=== PATIENT | female | born 2000 | race Hispanic/Latino ===

== ENCOUNTER 2022-01-01 19:41 | Emergency (ER) | payer OTHER ==
[2022-01-01 22:07] LABS: Urine Blood Negative (Negative); Urine Glucose Trace (Negative); Urine Protein Negative (Negative); Urine Specific Gravity >=1.030 (1.005-1.030); Urine pH 5.5 (5.0-7.0)
[2022-01-01 22:37] LABS: Urine RBC <5 /HPF (NONE SEEN)
[2022-01-01 22:38] LABS: Urine Bacteria >50 /HPF (<20); Urine Mucus LIGHT /HPF (NONE SEEN)
--- NOTE | 2022-01-01 22:55 | EDPHYS ---
Physician Documentation [facility] Name: Rosemary Ha Age: 21 yrs Sex: Female : 2000 Arrival Date: 01/01/2022 Time: 19:44 Bed DIS3 Private MD: ED Physician Alcides Davison HPI: 01/01 21:16 This 21 yrs old Female presents to ER via Ambulatory with complaints of Fever. pm1 21:16 The patient reports fever, not measured (subjective). Onset: The symptoms/episode pm1 began/occurred yesterday. Modifying factors: there are no obvious modifying factors. Associated signs and symptoms: Pertinent positives: cough, runny nose, sore throat, dysuria, suprapubic cramping with urinating. Severity of symptoms: in the emergency department the symptoms are unchanged. The patient has not experienced similar symptoms in the past. The patient has not recently seen a physician. 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 - Social history:: Smoking status: Patient denies any tobacco usage or history of. ROS: 21:16 Constitutional: Negative for fever, chills, and weight loss, Cardiovascular: Negative pm1 for chest pain, palpitations, and edema, Respiratory: Negative for shortness of breath, cough, wheezing, and pleuritic chest pain, Abdomen/GI: Negative for abdominal pain, nausea, vomiting, diarrhea, and constipation. 21:16 Back: Negative for injury and pain. pm1 21:16 MS/Extremity: Negative for injury and deformity, Skin: Negative for injury, rash, and discoloration, Neuro: Negative for headache, weakness, numbness, tingling, and seizure. 21:16 : Positive for cramping suprapubic area with urination, Negative for flank pain. 21:16 All other systems are negative. Exam: 21:16 Constitutional: This is a well developed, well nourished patient who is awake, alert, pm1 and in no acute distress. Head/Face: Normocephalic, atraumatic. 21:16 Back: No spinal tenderness. No costovertebral tenderness. Full range of motion. Skin: Warm, dry with normal turgor. Normal color with no rashes, no lesions, and no evidence of cellulitis. MS/ Extremity: Pulses equal, no cyanosis. Neurovascular intact. Full, normal range of motion. 21:16 ENT: Exam is negative for acute changes, Mouth: no acute changes, Lips: normal, moist, Oral mucosa: normal, pink and intact, moist. 21:16 Cardiovascular: Exam negative for acute changes, Rate: normal, Rhythm: regular, Pulses: no pulse deficits are appreciated. 21:16 Respiratory: Exam negative for acute changes, respiratory distress, shortness of breath. 21:16 Neuro: Exam negative for acute changes, Orientation: is normal, Mentation: is normal, Motor: is normal, moves all fours. Vital Signs: 20:23 BP 152 / 87; Pulse 109; Resp 18 S; Temp 98.7(O); Pulse Ox 100% on R/A; Weight 90.72 kg as6 (R); Height 5 ft. 1 in. (154.94 cm) (R); Pain 2/10; 20:23 Body Mass Index 37.79 (90.72 kg, 154.94 cm) as6 MDM: 20:44 Patient medically screened. pm1 22:54 Data reviewed: vital signs. Data interpreted: Pulse oximetry: on room air is 100 %. pm1 Interpretation: normal. Counseling: I had a detailed discussion with the patient and/or guardian regarding: the historical points, exam findings, and any diagnostic results supporting the discharge/admit diagnosis, lab results, the need for outpatient follow up, to return to the emergency department if symptoms worsen or persist or if there are any questions or concerns that arise at home. 01/01 20:27 Order name: Strep; Complete Time: 22:04 as6 01/01 20:27 Order name: Influenza Screen (a \\T\\ B); Complete Time: 22:04 as6 01/01 20:30 Order name: Influenza Screen (A ; Complete Time: 22:04 EDVA 01/01 20:45 Order name: CORONAVIRUS (COVID-19) : Document "Date of Symptom Onset" if Symptomatic. pm1 01/01 21:15 Order name: Urine Microscopic Only; Complete Time: 22:53 pm1 01/01 21:15 Order name: Urine Dipstick-Ancillary (obtain specimen); Complete Time: 22:23 pm1 01/01 21:32 Order name: Throat Culture EDMS 01/01 22:07 Order name: Urine Dipstick-Ancillary; Complete Time: 22:08 EDMS 01/01 22:41 Order name: Urine Culture EDVA Administered Medications: 23:14 Drug: Rocephin (cefTRIAXone) 1 grams Route: IM; Site: right vastus lateralis; tw5 23:15 Follow up: Response: No adverse reaction; Medication administered at discharge. tw5 Disposition Summary: 01/01/22 22:55 Discharge Ordered Location: Home pm1 Problem: new pm1 Symptoms: have improved pm1 Condition: Stable pm1 Diagnosis - UTI/ Urinary tract infection, site not specified pm1 - Acute upper respiratory infection, unspecified pm1 Followup: pm1 - With: Emergency Department - When: As needed - Reason: Worsening of condition Followup: pm1 - With: Private Physician - When: 2 - 3 days - Reason: Recheck today's complaints, Continuance of care, Re-evaluation by your physician Discharge Instructions: - Discharge Summary Sheet pm1 - Upper Respiratory Infection, Adult pm1 - and Urinary Tract Infection pm1 Forms: - Medication Reconciliation Form pm1 - Thank You Letter pm1 - Antibiotic Education pm1 - Prescription Opioid Use pm1 Prescriptions: - Macrobid 100 mg Oral Capsule - take 1 capsule by ORAL route every 12 hours for 10 days; 20 capsule; Refills: pm1 0, Product Selection Permitted Addendum: 01/03/2022 03:35 Co-signature as Attending Physician, Alcides Davison MD I agree with the assessment and k dr plan of care. Signatures: Dispatcher [employer] [facility] Alcides Davison MD MD [facility] Denny Crowder NP SENIOR PATIENT ACCOUNT REPRESENTATIVE pm1 Mari Webster tw5 Babatunde Arrieta RN RN as6
--- NOTE | 2022-01-01 22:55 | ER ---
Nurse's Notes [facility] Name: Rosemary Ha Age: 21 yrs Sex: Female : 2000 Arrival Date: 01/01/2022 Time: 19:44 Bed DIS3 Private MD: Diagnosis: UTI/ Urinary tract infection, site not specified;Acute upper respiratory infection, unspecified Presentation: 01/01 20:23 Chief complaint: Patient states: "I've been having a stuffy nose, sore throat, and then as6 I started running a fever, I'm just worried because I'm 3 months so I just wanted to get it checked out". Coronavirus screen: Client presents with at least one sign or symptom that may indicate coronavirus-19. Standard/surgical mask placed on the client. Provider contacted for isolation considerations. Ebola Screen: No symptoms or risks identified at this time. Initial Sepsis Screen: Does the patient meet any 2 criteria? No. Patient's initial sepsis screen is negative. Does the patient have a suspected source of infection? No. Patient's initial sepsis screen is negative. Risk Assessment: Do you want to hurt yourself or someone else? Patient reports no desire to harm self or others. Onset of symptoms was December 31, 2021. 20:23 Method Of Arrival: Ambulatory as6 20:23 Acuity: ROSIE 4 as6 Triage Assessment: 20:28 General: Appears in no apparent distress. Behavior is calm, cooperative. Pain: as6 Complains of pain in face. 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 - Social history:: Smoking status: Patient denies any tobacco usage or history of. Screenin:39 Abuse screen: Denies threats or abuse. Denies injuries from another. Nutritional lg3 screening: No deficits noted. Tuberculosis screening: No symptoms or risk factors identified. Fall Risk None identified. Assessment: 20:39 General: Appears in no apparent distress. comfortable, Behavior is calm, cooperative. lg3 Pain: Complains of pain in throat. Neuro: No deficits noted. Ricci Agitation-Sedation Scale (RASS): 0 - Alert and Calm Level of Consciousness is awake, alert, obeys commands, Oriented to person, place, time, situation. Cardiovascular: No deficits noted. Denies chest pain, Capillary refill < 3 seconds Clubbing of nail beds is absent JVD is absent Patient's skin is warm and dry. Respiratory: Reports cough that is dry, persistent pain with cough. GI: No deficits noted. No signs and/or symptoms were reported involving the gastrointestinal system. Abdomen is round non-distended. : No deficits noted. No signs and/or symptoms were reported regarding the genitourinary system. EENT: No deficits noted. No signs and/or symptoms were reported regarding the EENT system. Derm: No deficits noted. No signs and/or symptoms reported regarding the dermatologic system. Skin is intact, is healthy with good turgor, Skin is dry, Skin is pink, warm \\T\\ dry. Musculoskeletal: No deficits noted. No signs and/or symptoms reported regarding the musculoskeletal system. Circulation, motion, and sensation intact. Capillary refill < 3 seconds, Range of motion: intact in all extremities. 21:18 Reassessment: Patient appears in no apparent distress at this time. No changes from lg3 previously documented assessment. Patient and/or family updated on plan of care and expected duration. Pain level reassessed. Patient is alert, oriented x 3, equal unlabored respirations, skin warm/dry/pink. Vital Signs: 20:23 BP 152 / 87; Pulse 109; Resp 18 S; Temp 98.7(O); Pulse Ox 100% on R/A; Weight 90.72 kg as6 (R); Height 5 ft. 1 in. (154.94 cm) (R); Pain 2/10; 20:23 Body Mass Index 37.79 (90.72 kg, 154.94 cm) as6 ED Course: 19:44 Patient arrived in ED. bp1 20:25 Triage completed. as6 20:26 Arm band placed on. as6 20:28 Jenelle Phillips RN is Primary Nurse. lg3 20:28 Denny Crowder NP is PHCP. pm1 20:28 Alcides Davison MD is Attending Physician. pm1 20:39 Patient has correct armband on for positive identification. lg3 20:39 Strep Sent. lg3 20:39 Influenza Screen (a \\T\\ B) Sent. lg3 20:39 Influenza Screen (A Sent. lg3 21:20 Influenza Screen (a \\T\\ B) Sent. tw5 21:20 Influenza Screen (A Sent. tw5 21:20 CORONAVIRUS (COVID-19) : Document "Date of Symptom Onset" if Symptomatic. Sent. tw5 22:08 Throat Culture Sent. lg3 22:08 Urine Microscopic Only Sent. lg3 23:04 Urine Culture Sent. tw5 23:15 No provider procedures requiring assistance completed. Patient did not have IV access tw5 during this emergency room visit. Administered Medications: 23:14 Drug: Rocephin (cefTRIAXone) 1 grams Route: IM; Site: right vastus lateralis; tw5 23:15 Follow up: Response: No adverse reaction; Medication administered at discharge. tw5 Medication: 20:39 VIS not applicable for this client. lg3 Outcome: 22:55 Discharge ordered by MD. pm1 23:15 Discharged to home ambulatory. tw5 23:15 Condition: good 23:15 Discharge instructions given to patient, Instructed on discharge instructions, follow up and referral plans. Demonstrated understanding of instructions, follow-up care, medications, Prescriptions given X 1. 23:16 Patient left the ED. tw5 Signatures: Denny Crowder, HEALTH SERVICES COORDINATOR HEALTH SERVICES COORDINATOR pm1 Jenelle Phillips, ERNESTO OROZCO lg3 Elizabeth Armas Tiffany tw5 Babatunde Arrieta RN RN as6
[2022-01-01] MEDS ORDERED: CEFTRIAXONE 1000 MG/VIAL ONE (23:07)
[2022-01-01] MEDS ORDERED: WATER FOR INJ,STERILE 10 ML ONE (23:08)
[2022-01-01 23:21] VITALS: BP 152/87; TEMP 98.7; O2SAT 100
== END 2022-01-01 23:16 | disposition home or self-care (01) ==
LOC: ER 19:41
DX: N39.0 Urinary tract infection, site not specified (principal); J06.9 Acute upper respiratory infection, unspecified; Z20.822 Contact with and (suspected) exposure to COVID-19
CPT/HCPCS: 87070; 87088; 87086; 87081; 87804 ×2; 96372; 99283; U0003; 81003; 81015

== ENCOUNTER 2022-03-09 17:00 | Emergency (ER) | payer OTHER ==
--- NOTE | 2022-03-09 18:39 | ER ---
Nurse's Notes [facility] Name: Rosemary Ha Age: 22 yrs Sex: Female : 2000 Arrival Date: 03/09/2022 Time: 17:06 Bed 5 Private MD: Diagnosis: Coronavirus infection, unspecified Presentation: 03/09 17:07 Chief complaint: Sore throat, congestion, cough, nausea, and subjective fever x 2-3 hb days. Pt reports she is approx 24 weeks . Coronavirus screen: Client presents with at least one sign or symptom that may indicate coronavirus-19. Standard/surgical mask placed on the client. Provider contacted for isolation considerations. Ebola Screen: No symptoms or risks identified at this time. Initial Sepsis Screen: Does the patient meet any 2 criteria?. Risk Assessment: Do you want to hurt yourself or someone else? Patient reports no desire to harm self or others. Onset of symptoms was March 07, 2022. 17:07 Method Of Arrival: Ambulatory hb 17:07 Acuity: ROSIE 4 hb Triage Assessment: 19:00 General: Behavior is calm, cooperative. kl - Immunization history:: Adult Immunizations up to date. - Social history:: Smoking status: Patient denies any tobacco usage or history of. Screenin:30 Abuse screen: Denies threats or abuse. Denies injuries from another. Nutritional kl screening: No deficits noted. Tuberculosis screening: No symptoms or risk factors identified. Fall Risk None identified. Assessment: 17:30 General: Appears in no apparent distress. comfortable. Pain: Complains of pain in left kl aspect of posterior pharynx and right aspect of posterior pharynx Pain currently is 2 out of 10 on a pain scale. 17:30 GI: Abdomen is Abd is soft and non tender Reports nausea, Patient currently denies kl abdominal pain. 19:14 Reassessment: Patient appears in no apparent distress at this time. Patient and/or jb4 family updated on plan of care and expected duration. Pain level reassessed. Patient is alert, oriented x 3, equal unlabored respirations, skin warm/dry/pink. Vital Signs: 17:07 BP 143 / 88; Pulse 105; Resp 20; Temp 98.1; Pulse Ox 100% on R/A; Weight 99.79 kg; hb Height 5 ft. 1 in. (154.94 cm); Pain 6/10; 19:14 BP 132 / 85; Pulse 93; Resp 16; Pulse Ox 100% ; jb4 17:07 Body Mass Index 41.57 (99.79 kg, 154.94 cm) ED Course: 17:06 Patient arrived in ED. jj6 17:07 Arm band placed on. 17:08 [facility] Walker FNP [facility] 7 17:08 Shalonda Bacon MD is Attending Physician. 7 17:09 Triage completed. hb 17:45 COVID swab sent to lab. Flu and/or RSV swab sent to lab. kl 18:59 Bed in low position. Call light in reach. Side rails up X 1. kl 19:14 No provider procedures requiring assistance completed. Patient did not have IV access jb4 during this emergency room visit. Administered Medications: No medications were administered Medication: 19:14 VIS not applicable for this client. jb4 Outcome: 18:38 Discharge ordered by . [facility] 19:14 Discharged to home ambulatory, with family. jb4 19:14 Condition: stable 19:14 Discharge instructions given to patient, Instructed on discharge instructions, follow up and referral plans. medication usage, Demonstrated understanding of instructions, follow-up care, medications, Prescriptions given X 1. 19:15 Patient left the ED. jb4 Signatures: Chasidy Mckeon, RN RN Yamileth Ordonze, RN RN Stanford Lee RN RN jb4 Ela Velasco j6 Ela Walker FNP SK[employer] HAND [facility] Corrections: (The following items were deleted from the chart) 19:15 19:14 IV discontinued, intact, bleeding controlled, No redness/swelling at site. jb4 Pressure dressing applied, jb4
--- NOTE | 2022-03-09 18:39 | EDPHYS ---
Physician Documentation [facility] Name: Rosemary Ha Age: 22 yrs Sex: Female : 2000 Arrival Date: 03/09/2022 Time: 17:06 Bed 5 Private MD: ED Physician Shalonda Bacon HPI: 03/09 17:15 This 22 yrs old Female presents to ER via Ambulatory with complaints of Fever, jh7 cough,Congestion, 24 WEEKS GESTATION. 17:15 Patient presents for sore throat, coughing up phlegm, runny nose, and congestion for jh7 the past few days. She states that she is 24 weeks and has had no issues with her so far. Denies chest pain or shortness of breath.. - Immunization history:: Adult Immunizations up to date. - Social history:: Smoking status: Patient denies any tobacco usage or history of. ROS: 17:15 Eyes: Negative for injury, pain, redness, and discharge, Cardiovascular: Negative for jh7 chest pain, palpitations, and edema, Abdomen/GI: Negative for abdominal pain, nausea, vomiting, diarrhea, and constipation, Back: Negative for injury and pain, Skin: Negative for injury, rash, and discoloration, Neuro: Negative for headache, weakness, numbness, tingling, and seizure. 17:15 Constitutional: Positive for fever, Negative for poor PO intake. 17:15 ENT: Positive for nasal discharge, sinus congestion, sore throat. 17:15 Respiratory: Positive for cough, Negative for shortness of breath, wheezing. 17:15 All other systems are negative. Exam: 17:15 Constitutional: This is a well developed, well nourished patient who is awake, alert, jh7 and in no acute distress. Head/Face: Normocephalic, atraumatic. Cardiovascular: Regular rate and rhythm with a normal S1 and S2. No gallops, murmurs, or rubs. Normal PMI, no JVD. No pulse deficits. Respiratory: Lungs have equal breath sounds bilaterally, clear to auscultation and percussion. No rales, rhonchi or wheezes noted. No increased work of breathing, no retractions or nasal flaring. Abdomen/GI: Soft, non-tender, with normal bowel sounds. No distension or tympany. No guarding or rebound. No evidence of tenderness throughout. Back: No spinal tenderness. No costovertebral tenderness. Full range of motion. Skin: Warm, dry with normal turgor. Normal color with no rashes, no lesions, and no evidence of cellulitis. Neuro: Awake and alert, GCS 15, oriented to person, place, time, and situation. Normal gait. 17:15 ENT: Nose: nasal drainage, that is clear, Postnasal drainage. Vital Signs: 17:07 BP 143 / 88; Pulse 105; Resp 20; Temp 98.1; Pulse Ox 100% on R/A; Weight 99.79 kg; hb Height 5 ft. 1 in. (154.94 cm); Pain 6/10; 19:14 BP 132 / 85; Pulse 93; Resp 16; Pulse Ox 100% ; jb4 17:07 Body Mass Index 41.57 (99.79 kg, 154.94 cm) hb MDM: 17:11 Patient medically screened. [facility] 19:00 Differential diagnosis: viral Infection, URI. Data reviewed: vital signs, nurses notes, [facility] lab test result(s). Data interpreted: Pulse oximetry: is 100 %. Interpretation: normal. Counseling: I had a detailed discussion with the patient and/or guardian regarding: the historical points, exam findings, and any diagnostic results supporting the discharge/admit diagnosis, to return to the emergency department if symptoms worsen or persist or if there are any questions or concerns that arise at home. 03/09 17:12 Order name: Flu; Complete Time: 18:27 [facility] 03/09 17:12 Order name: SARS-COV-2 RT PCR (Document "Date of Onset" if Symptomatic); Complete Time: [facility] 19:22 Administered Medications: No medications were administered Disposition: 03/10 10:43 Co-signature as Attending Physician, Shalonda Bacon MD. STAFF ATTESTATION STATEMENT I edmundo was immediately available on-site in the Emergency Department for consultation in the care of the patient. Shalonda Bacon MD. Chart complete. Disposition Summary: 03/09/22 18:38 Discharge Ordered Location: Home [facility] Problem: new [facility] Symptoms: are unchanged [facility] Condition: Stable [facility] Diagnosis - Coronavirus infection, unspecified [facility] Followup: [facility] - With: Private Physician - When: 2 - 3 days - Reason: Recheck today's complaints Discharge Instructions: - Discharge Summary Sheet jh7 - COVID-19 jh7 - COVID-19 Frequently Asked Questions [facility] - COVID-19: Quarantine vs. Isolation - [place] [id number] Forms: - Medication Reconciliation Form 7 - Thank You Letter 7 Prescriptions: - ProAir HFA 90 mcg/actuation Inhalation HFA aerosol inhaler - inhale 2 puff by INHALATION route every 4-6 hours As needed; 1 Inhaler; [facility] Refills: 0, Product Selection Permitted Signatures: Dispatcher [employer] EDMS Yamileth Ordonez, RN RN Ela Do, COMPLIANCE VICE PRESIDENT COMPLIANCE VICE PRESIDENT 7 Shalonda Bacon MD MD sd2 Corrections: (The following items were deleted from the chart) 03/09 18:13 17:34 Chest Single View+[email or web address] ordered. EDDC EDDC
[2022-03-09 20:10] VITALS: TEMP 98.1; O2SAT 100
[2022-03-09 20:12] VITALS: BP 132/85
== END 2022-03-09 19:15 | disposition home or self-care (01) ==
LOC: ER 17:00
DX: O98.512 Other viral diseases complicating pregnancy, second trimester (principal); U07.1 COVID-19; Z3A.24 24 weeks gestation of pregnancy
CPT/HCPCS: 87804 ×2; 99283; U0003